=== PATIENT | male | born 1960 | race Two or more races ===

== ENCOUNTER 2021-07-16 09:22 | Emergency (ER) | payer OTHER ==
[~2021-07-16] VITALS: Ht 182.9 cm; Wt 97.5 kg
== END 2021-07-16 15:34 | disposition home or self-care (01) ==
LOC: ER 09:22
DX: T63.621A Toxic effect of contact with other jellyfish, accidental (unintentional), initial encounter (principal); R20.0 Anesthesia of skin; Y92.832 Beach as the place of occurrence of the external cause